=== PATIENT | male | born 2000 | race Two or more races ===

== ENCOUNTER 2023-08-18 21:17 | Inpatient (IN) | payer OTHER ==
[~2023-08-18] VITALS: Ht 182.9 cm; Wt 116.6 kg
[2023-08-18 21:40] VITALS: PULSE 87; RESP 14; O2SAT 97
[2023-08-18] MEDS ORDERED: ACETAMINOPHEN 325 MG TAB PO PRN (22:15)
[2023-08-18] MEDS ORDERED: D5W/SOD CHLO 0.9% 1,000 ML IV SCH (22:15)
[2023-08-18] MEDS ORDERED: ONDANSETRON HCL 4 MG/2 ML VIAL IV PRN (22:15)
[2023-08-18] MEDS ORDERED: MORPHINE SULFATE INJ 2 MG/ml SYRG IV PRN ×2 (22:15)
[2023-08-18] MEDS ORDERED: NITROGLYCERIN 0.4 MG SL TAB SL PRN (22:15)
[2023-08-18 22:21] LABS: Basophils # (auto) 0.1 10 ^3/uL (0-0.2); Basophils % (auto) 0.6 % (0.0-2.0); Eosinophils # (auto) 0.1 10 ^3/uL (0-0.8); Eosinophils % (auto) 1.4 % (0.0-7.0); Hematocrit 40.4 % (41.0-53.0); Hemoglobin 13.8 g/dL (13.5-17.5); Lymphocytes % (auto) 18.6 % (10.0-50.0); Mean Corpuscular Hemoglobin 30.3 pg (28.0-32.0); Mean Corpuscular Hgb Conc. 34.2 g/dL (32.0-36.0); Mean Corpuscular Volume 88.8 fL (80.0-100.0); Monocytes # (auto) 0.9 10 ^3/uL (0-1.3); Monocytes % (auto) 8.3 % (0.0-12.0); Neutrophils # (auto) 7.5 10 ^3/uL (1.6-8.6); Neutrophils % (auto) 71.1 % (37.0-80.0); Nucleated Red Blood Cells % 0.1 %; Red Blood Cells 4.55 10^6/uL (4.5-5.90); Red Cell Distribution Width 13.9 % (11.8-14.3); White Blood Cell 10.6 10^3/uL (4.4-10.8)
[2023-08-18 22:22] LABS: Urine Bacteria NONE SEEN /hpf (None Seen); Urine Blood Negative /uL (Negative); Urine Clarity Clear (Clear); Urine Color Colorless (Yellow); Urine Protein, UAD Negative (Negative); Urine Specific Gravity 1.033 (1.001-1.035); Urine Urobilinogen Normal (Negative); Urine WBC <1 /hpf (0 - 3); Urine pH 5.5 (5.0-8.0)
[2023-08-18] MEDS: metroNIDAZOLE 500MG/100ML 100 ML IV SCH (22:28)
[2023-08-18 22:36] LABS: Alanine Aminotransferase 19 U/L (7-40); Alkaline Phosphatase 51 U/L (46-116); Anion Gap 6 (5-15); Aspartate Aminotransferase 16 U/L (13-40); Blood Urea Nitrogen 9 mg/dL (9-23); Calcium 8.2 mg/dL (8.7-10.4); Carbon Dioxide 23 mmol/L (20-30); Chloride 109 mmol/L (98-107); Glucose 90 mg/dL (74-106); Lipase 44 U/L (12-53); Potassium 3.3 mmol/L (3.5-5.1); Sodium 138 mmol/L (136-145)
[2023-08-18 22:37] LABS: Bilirubin, Total 0.6 mg/dL (0.2-1.0); Partial Thromboplastin Time 35.6 SEC (24.5-34.5); Prothrombin Time 10.5 sec (9.3-11.8); Total Protein 6.6 g/dL (5.7-8.2)
[2023-08-18] MEDS ORDERED: POTASSIUM CHL 20 Meq TABLET PO ONE (23:00)
[2023-08-19] VITALS (7 sets, daily range): BP systolic 118–133; BP diastolic 62–84; PULSE 80–89; RESP 13–18; TEMP 98–98.5; O2SAT 92–98
[2023-08-19 06:13] LABS: Basophils # (auto) 0 10 ^3/uL (0-0.2); Basophils % (auto) 0.4 % (0.0-2.0); Eosinophils # (auto) 0.2 10 ^3/uL (0-0.8); Eosinophils % (auto) 2.2 % (0.0-7.0); Hematocrit 41.2 % (41.0-53.0); Hemoglobin 13.5 g/dL (13.5-17.5); Lymphocytes # (auto) 1.6 10 ^3/uL (0.4-5.4); Lymphocytes % (auto) 16.3 % (10.0-50.0); Mean Corpuscular Hgb Conc. 32.8 g/dL (32.0-36.0); Mean Corpuscular Volume 91.5 fL (80.0-100.0); Monocytes % (auto) 9.9 % (0.0-12.0); Neutrophils # (auto) 7.2 10 ^3/uL (1.6-8.6); Neutrophils % (auto) 71.2 % (37.0-80.0); Nucleated Red Blood Cells % 0.1 %; Red Blood Cells 4.51 10^6/uL (4.5-5.90); Red Cell Distribution Width 13.9 % (11.8-14.3); White Blood Cell 10.1 10^3/uL (4.4-10.8)
[2023-08-19] MEDS: metroNIDAZOLE 500MG/100ML 100 ML IV SCH ×3 (06:21→22:26)
[2023-08-19 06:32] LABS: Alanine Aminotransferase 16 U/L (7-40); Albumin 3.6 g/dL (3.2-4.8); Alkaline Phosphatase 47 U/L (46-116); Anion Gap 5 (5-15); Aspartate Aminotransferase 15 U/L (13-40); Carbon Dioxide 24 mmol/L (20-30); Chloride 110 mmol/L (98-107); Glucose 95 mg/dL (74-106); Potassium 3.7 mmol/L (3.5-5.1); Sodium 139 mmol/L (136-145)
[2023-08-19 06:33] LABS: Bilirubin, Total 0.9 mg/dL (0.2-1.0); Total Protein 6.1 g/dL (5.7-8.2)
[2023-08-19 06:40] LABS: Blood Urea Nitrogen < 5 mg/dL (9-23)
[2023-08-19] MEDS ORDERED: DexAMETHasone SOD PHOS 10MG/1ML VIAL INJ ONE (08:49)
[2023-08-19] MEDS ORDERED: SUGAMMADEX 200mg/2ml Vial (100MG/ML) IV ONE (08:49)
[2023-08-19] MEDS ORDERED: LIDOCAINE 2% (LOCAL ANESTH.) PF 5ml SDV ONE (08:49)
[2023-08-19] MEDS ORDERED: fentaNYL CITRATE 100 MCG/2 ML VL ONE (08:49)
[2023-08-19] MEDS ORDERED: PROPOFOL 10 MG/ML 20 ML IV ONE (08:49)
[2023-08-19] MEDS ORDERED: ONDANSETRON HCL 4 MG/2 ML VIAL ONE (08:49)
[2023-08-19] MEDS ORDERED: MIDAZOLAM HCL 2MG/2ML 2ml VIAL (1mg/ml) ONE (08:49)
[2023-08-19] MEDS ORDERED: GLYCOPYRROLATE 0.2 MG/ML 1ML VIAL ONE (08:49)
[2023-08-19] MEDS ORDERED: HYDROmorphone HCL 2 MG/ML VL/or syr ONE (08:49)
[2023-08-19] MEDS ORDERED: ceFAZolin 1GM/50ML 100 ML IV ONE (09:28)
[2023-08-19] MEDS ORDERED: BUPIVACAINE HCL 0.25% P/F 10 ML VIAL ONE (09:33)
[2023-08-19] MEDS ORDERED: FAMOTIDINE (10MG/ML) 2ML VL IV ONE (09:53)
[2023-08-19] MEDS: D5W/SOD CHL 0.45%/KCL 20MEQ 1,000 ML IV SCH ×2 (10:30→19:18)
[2023-08-19] MEDS ORDERED: ONDANSETRON HCL 4 MG/2 ML VIAL IV PRN (11:00)
[2023-08-19] MEDS ORDERED: HYDROmorphone HCL 2 MG/ML VL/or syr IV PRN (11:00)
[2023-08-19] MEDS: ceFAZolin 1GM/50ML 50 ML IV SCH ×2 (15:10→21:29)
[2023-08-20] MEDS: HYDROcodone-ACET 5/325MG TAB PO PRN ×2 (00:03→12:09)
[2023-08-20 04:57] VITALS: BP 120/64; PULSE 91; RESP 15; TEMP 97.5; O2SAT 93
[2023-08-20] MEDS: ceFAZolin 1GM/50ML 50 ML IV SCH (05:06)
[2023-08-20] MEDS: metroNIDAZOLE 500MG/100ML 100 ML IV SCH (05:56)
[2023-08-20] MEDS: D5W/SOD CHL 0.45%/KCL 20MEQ 1,000 ML IV SCH (06:27)
[2023-08-20 06:37] LABS: Basophils # (auto) 0 10 ^3/uL (0-0.2); Basophils % (auto) 0.1 % (0.0-2.0); Eosinophils # (auto) 0 10 ^3/uL (0-0.8); Eosinophils % (auto) 0.2 % (0.0-7.0); Hematocrit 39.3 % (41.0-53.0); Hemoglobin 13.3 g/dL (13.5-17.5); Lymphocytes # (auto) 1.3 10 ^3/uL (0.4-5.4); Lymphocytes % (auto) 12.4 % (10.0-50.0); Mean Corpuscular Hemoglobin 30.4 pg (28.0-32.0); Mean Corpuscular Hgb Conc. 33.9 g/dL (32.0-36.0); Mean Corpuscular Volume 89.8 fL (80.0-100.0); Monocytes # (auto) 0.9 10 ^3/uL (0-1.3); Monocytes % (auto) 8.4 % (0.0-12.0); Neutrophils # (auto) 8.1 10 ^3/uL (1.6-8.6); Neutrophils % (auto) 78.9 % (37.0-80.0); Red Blood Cells 4.38 10^6/uL (4.5-5.90); Red Cell Distribution Width 13.9 % (11.8-14.3); White Blood Cell 10.3 10^3/uL (4.4-10.8)
[2023-08-20 06:46] LABS: Alanine Aminotransferase 15 U/L (7-40); Albumin 3.7 g/dL (3.2-4.8); Alkaline Phosphatase 52 U/L (46-116); Anion Gap 9 (5-15); Aspartate Aminotransferase 11 U/L (13-40); Bilirubin, Total 0.6 mg/dL (0.2-1.0); Calcium 8.4 mg/dL (8.7-10.4); Carbon Dioxide 25 mmol/L (20-30); Chloride 106 mmol/L (98-107); Glucose 108 mg/dL (74-106); Potassium 3.9 mmol/L (3.5-5.1); Sodium 140 mmol/L (136-145); Total Protein 6.2 g/dL (5.7-8.2)
[2023-08-20 06:47] LABS: BUN/Creatinine Ratio 6.4 (10.0-20.0); Blood Urea Nitrogen < 5 mg/dL (9-23)
[2023-08-20 08:20] VITALS: PULSE 80; RESP 16
[2023-08-20 09:00] VITALS: BP 104/71; PULSE 88; RESP 20; TEMP 98; O2SAT 92
== END 2023-08-20 14:00 | disposition home or self-care (01) | DRG 399 ==
LOC: ER 21:17 → OVERFLOW 22:08 → WEST WING 08-19 12:15
PROVIDERS: ADMIT Nurse Practitioner Family; ATTEND Internal Medicine
PROC: 0DTJ4ZZ Resection of Appendix, Percutaneous Endoscopic Approach (ICD-10-PCS; principal; 2023-08-19 09:42)
DX: K35.80 Unspecified acute appendicitis (principal); E87.6 Hypokalemia; E66.9 Obesity, unspecified; Z68.34 Body mass index [BMI] 34.0-34.9, adult
CPT/HCPCS: 36415; 80053; 81001; 83690; 85025; 85610; 85730; 86850; 86900; 86901; G0378; J0690; J1100; J2001; J2250; J2405; J2704; J3490